=== PATIENT | male | born 1965 | race Caucasian/White ===

== ENCOUNTER 2019-05-26 12:59 | Emergency (ER) | payer OTHER, SELFPAY ==
[2019-05-26 13:10] VITALS: BP 137/90; PULSE 73; RESP 16; TEMP 36.2; O2SAT 97; BMI 34.4
[2019-05-26 13:44] LABS: Add Manual Diff / Slide Review NO; Basophils Absolute Auto 100 /uL (0-100); Eosinophils Absolute Auto 100 /uL (0-450); Hematocrit 44.5 % (41-53); Hemoglobin 15.5 g/dL (13.5-17.5); Lymphocytes Absolute Auto 1900 /uL (1100-4500); Lymphocytes Percent Auto 30.8 % (25-40); Mean Corpuscular HGB Conc 34.9 % (30-36); Mean Corpuscular Hemoglobin 31.1 PG (26-34); Mean Corpuscular Volume 89.3 fL (80-100); Monocytes Absolute Auto 500 /uL (0-900); Monocytes Percent Auto 8.2 % (3-14); Neutrophils Absolute Auto 3700 /uL (1500-7000); Platelet Count 175 X10^3/uL (150-400); Red Blood Cell Count 4.98 X10^6/uL (4.5-5.9); Red Cell Distribution Width 13.1 % (11.6-14.8); White Blood Cell Count 6.3 X10^3/uL (4.5-11.0)
[2019-05-26 13:53] LABS: PTT Partial Thromboplastin Tim 32 SECONDS (26.4-36.2)
[2019-05-26 13:54] LABS: Alanine Aminotransferase 43 IU/L (21-72); Albumin 4.4 g/dL (3.5-5.0); Albumin Globulin Ratio 1.4 (1.0-2.8); Alkaline Phosphatase 78 U/L (38-126); Aspartate Aminotransferase 38 IU/L (17-59); Bilirubin Total 0.9 mg/dL (0.2-1.3); Blood Urea Nitrogen 19 mg/dL (9-20); Calcium 9.4 mg/dL (8.4-10.2); Carbon Dioxide 28 mmol/L (22-32); Chloride 101 mmol/L (98-107); Estimated Glomerular Filt Rate > 60.0 mL/min (>60); Globulin 3.1 g/dL (1.7-4.1); Glucose 105 mg/dL (70-100); HEMOLYSIS 29 (0-50); Lipase 78 U/L (23-300); Potassium 4.4 mmol/L (3.4-5.1); Sodium 137 mmol/L (137-145); Total Protein 7.5 g/dL (6.3-8.2)
[2019-05-26] MEDS: SODIUM CHLORIDE 0.9% 1,000 ML 150 ML IV (13:55)
--- NOTE | 2019-05-26 14:09 | DI.CT.S_ITS ---
PROCEDURE: CT ABDOMEN PELVIS W CON INDICATIONS: RLQ pain for 3 days TECHNIQUE: After the administration of intravenous contrast, 5 mm thick sections acquired from the diaphragm to the symphysis. 5 mm coronal and sagittal reformats were acquired. For radiation dose reduction, the following was used: automated exposure control, adjustment of mA and/or kV according to patient size. COMPARISON: None. FINDINGS: Image quality: Excellent. ABDOMEN: Lung bases: Lung bases are clear. Heart size is normal. Solid organs: Liver is normal in size and enhancement. Gallbladder is within normal limits. Biliary system is non dilated. Pancreas enhances normally. Spleen is normal in size and enhancement. No adrenal nodules. Kidneys demonstrate normal size and enhancement, without hydronephrosis. Peritoneum and bowel: Bowel loops demonstrate normal wall thickness and caliber. No free fluid or air. The appendix is normal. Nodes and vessels: No retroperitoneal or mesenteric adenopathy by size criteria. Aorta and inferior vena cava are normal in size. Scattered atherosclerotic calcifications involving the abdominal and pelvic vasculature. Miscellaneous: A small fat containing umbilical hernia. PELVIS: Genitourinary: Bladder wall thickness is normal. Urinary bladder is markedly distended. Miscellaneous: No inguinal hernias or adenopathy. Bones: No suspicious bony lesions. No vertebral body compression fractures. Spine degenerative disc disease and facet arthropathy. IMPRESSION: 1. No acute disease process. 2. No evidence of appendicitis. 3. No free fluid or free air. 4. No dilated loops of bowel. 5. Fat containing umbilical hernia. 6. Marked distention of the urinary bladder without bladder wall thickening. Dictated by: Lilly Villarreal MD, PhD on 05/26/2019 at 15:17 Approved by: Lilly Villarreal MD, PhD on 05/26/2019 at 15:23
[2019-05-26 14:33] VITALS: BP 131/88
--- NOTE | 2019-05-26 15:04 | ED_ITS ---
HPI - Abdominal Pain <MARGY CesarP - Last Filed: 05/26/19 22:22> General Chief Complaint: Abdominal Pain Stated Complaint: Right Side Abd Pain, 2 Days Time Seen by Provider: 05/26/19 13:32 Source: patient Mode of arrival: Ambulatory Limitations: no limitations History of Present Illness HPI narrative: This is a 53-year-old gentleman, nonsmoker, who presents to ED with right lower quadrant pain for 3 days. Patient reports that pain got worse during last night. Patient denies urinary symptoms such as dysuria, urgency, or frequency or hematuria. Patient denies history of kidney stones. Patient reports pain is like chapping and increases with movement he has been limping du ring ambulation or at work. Patient denies fever, chills, changes in appetite nausea or vomiting. Patient reports loose stool without blood this morning which is not abnormal after spaghetti for dinner. Patient reports just not feel right with this discomfort and here for evaluation. Related Data Home Medications Medication Instructions Recorded Confirmed clonidine HCl 0.2 mg PO BEDTIME 05/26/19 05/26/19 methylphenidate HCl 20 mg PO BID 05/26/19 05/26/19 Allergies Allergy/AdvReac Type Severity Reaction Status Date / Time No Known Drug Allergies Allergy Verified 05/26/19 13:10 Review of Systems <Jose Ramon FloresTristaSPIKE Hahn - Last Filed: 05/26/19 22:22> Review of Systems Narrative: General: Denies fever, chills, fatigue, malaise, sweats. HEENT: Denies sinus pain, ear pain, sore throat, difficulty swallowing, dizziness. Respiratory: Denies dyspnea, cough, wheezing, hemoptysis, sputum. Cardiovascular: Denies chest pain, palpitations, orthopnea, edema. Gastrointestinal: See HPI : Denies dysuria, frequency, incontinence, hematuria, urinary retention. Musculoskeletal: Denies weakness, joint pain or bony pain. Skin: Denies rash, skin lesions, or other. Neurologic: Denies weakness, headache, numbness, change in speech, confusion, seizures, incoordination. Psychiatric: No concerning psychosocial issues. 12-point review of systems is negative except for those stated above. Patient History <SPIKE Cesar - Last Filed: 05/26/19 22:22> Social History Smoking Status: Never smoker alcohol intake frequency: 0-2 drinks per day Substance Use Type: marijuana Exam <SPIKE Cesar - Last Filed: 05/26/19 22:22> Narrative Exam Narrative: GEN: Alert, oriented x 3, well appearing and nourished, and in no acute distress. Head: Normal cephalic, atraumatic. No scalp or temporal tenderness, palpable mass or rash. EYES: Pupils are equal, round, and reactive to light and accommodation. E xtraocular muscles are intact bilaterally. There is no subconjunctival hemorrhage, exudate and sclera non-icteric. ENT: Bilateral auditory canals and tympanic membranes clear. Hearing grossly intact. Nose without bleeding, purulent discharge or deviation. Facial sinuses nontender to palpate. Mucous membrane moist, no mucosal lesion. Throat without erythema, tonsillar hypertrophy or exudate. Uvula in midline, airway patent. Neck: Trachea in midline. No JVD, non-tender without lymphadenopathy. No masses or thyroid megaly. Supple, non-tender and no meningeal signs. CARDIAC: Normal regular rate and rhythm without murmurs, gallops, or rubs. No chest wall tenderness. No peripheral edema, cyanosis or pallor. Capillary refill is less than 2 seconds. RESPIRATORY: Lungs are clear to auscultate bilaterally. No cough, wheezes, rales, or rhonchi. No stridor, respiratory distress, increase work of breathing, or accessary muscle used. ABD: Right lower quadrant pain with palpation with rebound tenderness. Abdomen soft and non-distendedn no guarding. Bowel sounds are normal in all 4 quadrants. There is no palpable masses or organomegaly. EXT: Full painless ROM of all extremities with no loss of sensation, strength, effusion or edema. SKIN: Warm, dry, normal color for patient. No erythema, lesions or rash over visible areas. BACK: Nontender without deformity or crepitance. No flank tenderness. NEUROLOGICAL: Alert and oriented to place, time and person. Sensation and motor function intact bilaterally. No facial droops, dysphasia. PSYCHIATRIC: Good judgement and reason, without hallucinations, abnormal affect or abnormal behaviors during the examination. Initial Vital Signs Initial Vital Signs: Vital Signs Temperature 97.1 F L 05/26/19 13:10 Pulse Rate 73 05/26/19 13:10 Respiratory Rate 16 05/26/19 13:10 Blood Pressure 137/90 05/26/19 13:10 Pulse Oximetry 97 05/26/19 13:10 <Renaldo Camacho DO - Last Filed: 05/27/19 07:06> Initial Vital Signs Initial Vital Signs: Vital Signs Temperature 97.1 F L 05/26/19 13:10 Pulse Rate 73 05/26/19 13:10 Respiratory Rate 16 05/26/19 13:10 Blood Pressure 137/90 05/26/19 13:10 Pulse Oximetry 97 05/26/19 13:10 Scores <SPIKE Cesar - Last Filed: 05/26/19 22:22> GCS Ben coma scale eye opening: Spontaneous Ben coma scale verbal response: Orientated Ben coma scale motor response: Obey commands [place] coma scale total score: 15 Course <SPIKE Cesar - Last Filed: 05/26/19 22:22> Orders Ordered: Discontinued Medications Sodium Chloride (Normal Saline 0.9%) 500 mls @ 1,000 mls/hr IV BOLUS ONE Stop: 05/26/19 14:15 Last Admin: 05/26/19 13:54 Dose: Not Given Documented by: SANIA Sodium Chloride (Normal Saline 0.9%) 1,000 mls @ 150 mls/hr IV CONT HAILEE Last Infusion: 05/26/19 16:00 Dose: 0 mls/hr Documented by: Infusion: 05/26/19 15:35 Dose: 1,000 mls/hr Documented by: Admin: 05/26/19 13:55 Dose: 150 mls/hr Documented by: SANIA Ketorolac Tromethamine (Toradol) 30 mg IV NOW ONE Stop: 05/26/19 13:47 Last Admin: 05/26/19 16:15 Dose: Not Given Documented by: SANIA Vital Signs Vital signs: Vital Signs - 8 hr 05/26/19 14:33 05/26/19 16:20 Pulse Rate 63 Respiratory Rate 18 Blood Pressure 129/82 Blood Pressure [Left Arm] 131/88 Pulse Oximetry 99 <DO Tirsta Serna Last Filed: 05/27/19 07:06> Orders Ordered: Discontinued Medications Sodium Chloride (Normal Saline 0.9%) 500 mls @ 1,000 mls/hr IV BOLUS ONE Stop: 05/26/19 14:15 Last Admin: 05/26/19 13:54 Dose: Not Given Documented by: SANIA Sodium Chloride (Normal Saline 0.9%) 1,000 mls @ 150 mls/hr IV CONT HAILEE Last Infusion: 05/26/19 16:00 Dose: 0 mls/hr Documented by: Infusion: 05/26/19 15:35 Dose: 1,000 mls/hr Documented by: Admin: 05/26/19 13:55 Dose: 150 mls/hr Documented by: SANIA Ketorolac Tromethamine (Toradol) 30 mg IV NOW ONE Stop: 05/26/19 13:47 Last Admin: 05/26/19 16:15 Dose: Not Given Documented by: SANIA Vital Signs Vital signs: Vital Signs - 8 hr 05/26/19 14:33 05/26/19 16:20 Pulse Rate 63 Respiratory Rate 18 Blood Pressure 129/82 Blood Pressure [Left Arm] 131/88 Pulse Oximetry 99 MDM - Abdominal Pain <SPIKE Cesar - Last Filed: 05/26/19 22:22> Differential Diagnosis Differential diagnosis: Likely abdominal pain, acute appendicitis, calculus of kidney and other (Abdominal muscle strain) Medical Records Attestation: I reviewed the patient's medical records. Lab Data Attestation: I reviewed the patient's lab results. Result diagrams: 05/26/19 13:41 05/26/19 13:41 Labs: Lab Results 05/26/19 05/26/19 05/26/19 Range/Units 13:41 13:41 13:41 WBC 6.3 (4.5-11.0) X10^3/uL RBC 4.98 (4.5-5.9) X10^6/uL Hgb 15.5 (13.5-17.5) g/dL Hct 44.5 (41-53) % MCV 89.3 (80-100) fL MCH 31.1 (26-34) PG MCHC 34.9 (30-36) % RDW 13.1 (11.6-14.8) % Plt Count 175 (150-400) X10^3/uL Neut % (Auto) 58.0 (50-75) % Lymph % (Auto) 30.8 (25-40) % [place] % (Auto) 8.2 (3-14) % Eos % (Auto) 2.0 (2-4) % Baso % (Auto) 1.0 (0-2) % Neut # (Auto) 3700 (3790-9692) /uL Lymph # (Auto) 1900 (7085-2967) /uL [place] # (Auto) 500 (0-900) /uL Eos # (Auto) 100 (0-450) /uL Baso # (Auto) 100 (0-100) /uL PT 11.0 (10.1-12.7) SECONDS INR 1.0 (0.9-1.3) APTT 32 (26.4-36.2) SECONDS Sodium 137 (137-145) mmol/L Potassium 4.4 (3.4-5.1) mmol/L Chloride 101 (98-107) mmol/L Carbon Dioxide 28 (22-32) mmol/L BUN 19 (9-20) mg/dL Creatinine 1.00 (0.66-1.25) mg/dL Estimated GFR > 60.0 (>60) mL/min BUN/Creatinine Ratio 19.0 (6-22) Glucose 105 H (70-100) mg/dL Calcium 9.4 (8.4-10.2) mg/dL Total Bilirubin 0.9 (0.2-1.3) mg/dL AST 38 (17-59) IU/L ALT 43 (21-72) IU/L Alkaline Phosphatase 78 (38-126) U/L Total Protein 7.5 (6.3-8.2) g/dL Albumin 4.4 (3.5-5.0) g/dL Globulin 3.1 (1.7-4.1) g/dL Albumin/Globulin Ratio 1.4 (1.0-2.8) Lipase 78 (23-300) U/L Point of care testing: Urine Dip Bedside Urine Glucose Negative Bedside Urine Bilirubin - Negative Bedside Urine Ketone - Negative Urine Specific [place] 1.010 Bedside Urine Occult Blood - Negative Bedside Urine pH 6.0 Bedside Urine Protein - Negative Bedside Urine Urobilinogen - Negative Bedside Urine Nitrite - Negative Bedside Urine Leukocytes - Negative Esterase Imaging Data CT scan - abdomen: Radiologist's impression: [address] [address] [address] Scan Report Signed Patient: Ruddy Garzon WMR#: [id number] : 1965Acct:[id number] Age/Sex: 53 / MDate of Service: 05/26/19 Loc: ED Accession Number: [id number] Procedure: CT abdomen pelvis w con Ordering Provider: Jose Ramon Mccoy PROCEDURE: CT ABDOMEN PELVIS W CON INDICATIONS: RLQ pain for 3 days TECHNIQUE: After the administration of intravenous contrast, 5 mm thick sections acquired from the diaphragm to the symphysis. 5 mm coronal and sagittal reformats were acquired. For radiation dose reduction, the following was used: automated exposure control, adjustment of mA and/or kV according to patient size. COMPARISON: None. FINDINGS: Image quality: Excellent. ABDOMEN: Lung bases: Lung bases are clear. Heart size is normal. Solid organs: Liver is normal in size and enhancement. Gallbladder is within normal limits. Biliary system is non dilated. Pancreas enhances normally. Spleen is normal in size and enhancement. No adrenal nodules. Kidneys demonstrate normal size and enhancement, without hydronephrosis. Peritoneum and bowel: Bowel loops demonstrate normal wall thickness and caliber. No free fluid or air. The appendix is normal. Nodes and vessels: No retroperitoneal or mesenteric adenopathy by size criteria. Aorta and inferior vena cava are normal in size. Scattered atherosclerotic ca lcifications involving the abdominal and pelvic vasculature. Miscellaneous: A small fat containing umbilical hernia. PELVIS: Genitourinary: Bladder wall thickness is normal. Urinary bladder is markedly distended. Miscellaneous: No inguinal hernias or adenopathy. Bones: No suspicious bony lesions. No vertebral body compression fractures. Spine degenerative disc disease and facet arthropathy. IMPRESSION: 1. No acute disease process. 2. No evidence of appendicitis. 3. No free fluid or free air. 4. No dilated loops of bowel. 5. Fat containing umbilical hernia. 6. Marked distention of the urinary bladder without bladder wall thickening. Dictated by: Lilly Villarreal MD, PhD on 05/26/2019 at 15:17 Approved by: Lilly Villarreal MD, PhD on 05/26/2019 at 15:23 [facility] Narrative Medical decision making narrative: This is a pleasant 53-year-old gentleman presents to ED with right lower quadrant discomfort for 3 days. Patient denies constitutional symptoms or appetite change. Patient reports pain worsens with movements. Abdominal physical exam exhibited right lower quadrant pain with palpation, rebound tenderness with soft and nondistended abdomen. Patient has no history of previous abdominal surgeries. Patient's blood test for unremarkable including CBC and chemistry. CT abdomen pelvis showed no acute findings including appendicitis, no signs of bladder infection, no hydronephrosis. There is a small fat containing umbilical hernia. Urine test showed no indication of infection or hematuria. Patient declined IV medication of Toradol twice for pain. Findings were discussed with the patient. Patient advised to take Tylenol and or Motrin as needed for discomfort as this may is due to abdominal muscle strain and activity as tolerated. Patient verbalized understanding and agrees with treatment plan. Patient was afebrile with normal tensive and normal heart rate while in ED. <Renaldo Camacho DO - Last Filed: 05/27/19 07:06> Lab Data Labs: Lab Results 05/26/19 05/26/19 05/26/19 Range/Units 13:41 13:41 13:41 WBC 6.3 (4.5-11.0) X10^3/uL RBC 4.98 (4.5-5.9) X10^6/uL Hgb 15.5 (13.5-17.5) g/dL Hct 44.5 (41-53) % MCV 89.3 (80-100) fL MCH 31.1 (26-34) PG MCHC 34.9 (30-36) % RDW 13.1 (11.6-14.8) % Plt Count 175 (150-400) X10^3/uL Neut % (Auto) 58.0 (50-75) % Lymph % (Auto) 30.8 (25-40) % [place] % (Auto) 8.2 (3-14) % Eos % (Auto) 2.0 (2-4) % Baso % (Auto) 1.0 (0-2) % Neut # (Auto) 3700 (9344-5511) /uL Lymph # (Auto) 1900 (5959-6143) /uL [place] # (Auto) 500 (0-900) /uL Eos # (Auto) 100 (0-450) /uL Baso # (Auto) 100 (0-100) /uL PT 11.0 (10.1-12.7) SECONDS INR 1.0 (0.9-1.3) APTT 32 (26.4-36.2) SECONDS Sodium 137 (137-145) mmol/L Potassium 4.4 (3.4-5.1) mmol/L Chloride 101 (98-107) mmol/L Carbon Dioxide 28 (22-32) mmol/L BUN 19 (9-20) mg/dL Creatinine 1.00 (0.66-1.25) mg/dL Estimated GFR > 60.0 (>60) mL/min BUN/Creatinine Ratio 19.0 (6-22) Glucose 105 H (70-100) mg/dL Calcium 9.4 (8.4-10.2) mg/dL Total Bilirubin 0.9 (0.2-1.3) mg/dL AST 38 (17-59) IU/L ALT 43 (21-72) IU/L Alkaline Phosphatase 78 (38-126) U/L Total Protein 7.5 (6.3-8.2) g/dL Albumin 4.4 (3.5-5.0) g/dL Globulin 3.1 (1.7-4.1) g/dL Albumin/Globulin Ratio 1.4 (1.0-2.8) Lipase 78 (23-300) U/L Point of care testing: Urine Dip Bedside Urine Glucose Negative Bedside Urine Bilirubin - Negative Bedside Urine Ketone - Negative Urine Specific [place] 1.010 Bedside Urine Occult Blood - Negative Bedside Urine pH 6.0 Bedside Urine Protein - Negative Bedside Urine Urobilinogen - Negative Bedside Urine Nitrite - Negative Bedside Urine Leukocytes - Negative Esterase Discharge Plan Departure Patient Disposition: Home Clinical Impression: Right sided abdominal pain Discharge Date/Time: 05/26/19 16:20 Instructions: DI for Abdominal Pain-Adult Activity Restrictions/Additional Instructions: You have been diagnosed with [right-sided abdominal pain likely due to abdominal muscle strain. Lab tests were unremarkable today including urine test. CT test shows small fat containing umbilical hernia but no evidence of appendicitis]. What to do: *Take your medications as directed. Please take [id number] Tylenol and or Motrin as needed for discomfort. You can take upto 4000 mg Tylenol in 24 hr period and Motrin 600-800 mg 3 times a day with food. *Follow up with your primary care provider in 2-3 days, call for an appointment. Let them know you were seen in the ED and that we asked you to be seen in follow up. *Return to ED if you have any new, worsening, or concerning symptoms, such as [worsening pain, fever, decreased appetite, unable to void, unable to tolerate fluids, chest pain, breathing difficulty or any acute concerns]. Prescriptions: No Action methylphenidate HCl 20 mg Tablet 20 mg PO BID RF: 0 clonidine HCl 0.2 mg Tablet 0.2 mg PO BEDTIME RF: 0 Referrals: Diego Richardson MD [Primary Care Provider] - <Renaldo Camacho DO - Last Filed: 05/27/19 07:06> Sign Out Provider Sign Out Attestation: Dr Camacho Co-Sign Statement: I was available for consultation during this patient's emergency department visit. This chart is si gned by myself for administrative purposes only. I did not have direct contact with this patient during this visit. They were seen independently by the APC.
--- NOTE | 2019-05-26 15:35 | PC.NURSE ---
Sped up IV infusion of NaCl to 1000 mL/hr, per provider.
[2019-05-26 16:20] VITALS: BP 129/82; PULSE 63; RESP 18; O2SAT 99
== END 2019-05-26 16:20 | disposition home or self-care (01) ==
PROVIDERS: Emergency Medicine; Emergency Provider Nurse Practitioner Family; Family Provider Family Medicine; PCP Family Medicine
DX: R10.31 Right lower quadrant pain (principal); R10.9 Unspecified abdominal pain; K42.9 Umbilical hernia without obstruction or gangrene
CPT/HCPCS: 36415; 74177; 80053; 81003; 83690; 85025; 85610; 85730; 96360; 96361; 99283; 99284; Q9967

== ENCOUNTER → 2021-07-18 14:35 | Outpatient (CLI) | payer OTHER, SELFPAY ==
--- NOTE | 2021-07-18 14:38 | DI.RAD.S_ITS ---
PROCEDURE: XR ANKLE RT MIN 3V INDICATIONS: LIMP TECHNIQUE: 3 views of the ankle were acquired. COMPARISON: None. FINDINGS: Bones: No fractures or dislocations. Ankle mortise is normally aligned. No suspicious bony lesions. Prominent retrocalcaneal bone spur. Soft tissues: No tibiotalar joint effusion. Achilles tendon appears normal. IMPRESSION: Calcaneal enthesopathy. Dictated by: Bakari Brooks [facility] Interpreted: Francisco Burden MD on 07/18/2021 at 15:13 Transcribed by: THONY on 07/18/2021 at 15:14 Approved by: Francisco Burden M.D. on 07/18/2021 at 15:39
== END ==
PROVIDERS: Family Provider Family Medicine; PCP Family Medicine; Referring Provider Family Medicine; Visit Provider Family Medicine
DX: M77.31 Calcaneal spur, right foot (principal); R26.89 Other abnormalities of gait and mobility
CPT/HCPCS: 73610

== ENCOUNTER → 2021-10-12 10:11 | Outpatient (CLI) | payer OTHER, SELFPAY ==
[2021-10-12 11:39] LABS: COVID19 -Nasal RAPID Negative (Negative)
== END ==
PROVIDERS: Family Provider Family Medicine; PCP Family Medicine; Visit Provider Nurse Practitioner Family
DX: Z20.822 Contact with and (suspected) exposure to COVID-19 (principal)
CPT/HCPCS: 87635; C9803

== ENCOUNTER 2021-10-14 13:28 | Day surgery (SDC) | payer OTHER, SELFPAY ==
--- NOTE | 2021-10-14 12:20 | PM.HP.1 ---
History of Present Illness History of Present Illness Date Patient Seen: 10/14/21 Chief complaint: SDC Narrative: 55 year old male comes in today for consideration of a screening colonoscopy. There have been no lower GI symptoms suggesting disease such as change in bowel habits, bleeding, abdominal pain or anemia. There's been no family history of colon cancer or colon polyps. Overall health issues have been stable, including no major cardiac events for at least 6 weeks. PCP: Dr. Richardson Past medical history: Achilles tendinitis Insomnia Obesity Hyperlipidemia ADD Past surgical history: Vasectomy Family history: Noncontributory Social history: , contractor, 2 kids. Patient History Medical History (Updated 10/13/21 @ 16:31 by Vicki Tellez RN) ADHD Carpal tunnel syndrome of left wrist Hyperchloremia Surgical History (Updated 10/13/21 @ 16:31 by Vicki Tellez RN) H/O vasectomy Family & Social History Tobacco & Substance use: Smoking Status Never smoker alcohol intake frequency 0-2 drinks per day Substance Use Type marijuana Meds Home Medications and Allergies Home Medications Medication Instructions Recorded Confirmed Type clonidine HCl 0.2 mg tablet 0.2 mg PO BEDTIME 05/26/19 10/14/21 History methylphenidate HCl 20 mg tablet 20 mg PO BID 05/26/19 10/14/21 History Allergies Allergy/AdvReac Type Severity Reaction Status Date / Time No Known Drug Allergies Allergy Verified 10/14/21 13:45 Review of Systems Review of Systems Narrative: All remaining ROS were reviewed and negative except as addressed. Exam Narrative Exam Narrative: GENERAL: Alert and oriented, appearing stated age and in no acute distress. HEENT: Head normocephalic/atraumatic. Extraocular movements intact. LUNGS: Clear to ausculation bilaterally, no wheezes, rhonchi or rales. CV: Normal S1 and S2 with regular rate and rhythm, no audible murmurs, rubs or gallops. ABDOMEN: Soft, non-tender, non-distended, no organomegaly. Positive bowel sounds. EXTREMITIES: No clubbing, cyanosis, or edema. NEURO: Cranial nerves II through XII grossly intact, no focal deficits. PSYCH: Alert and oriented x 3. SKIN: No concerning lesions. Assessment & Plan Assessment & Plan narrative: 1. Screening for colon cancer Plan for colonoscopy. The nature and character of the procedure as well as anticipated results were discussed. The possibility of not completing the procedure was also discussed. Possible complications including aspiration pneumonia, bleeding, perforation and reaction to medications either for sedation or preparation and missed lesions were discussed. Questions were answered and proceeding to the colonoscopy was elected. Informed consent signed. I sincerely appreciate the referral allowing me to participate in this patient's care. Please contact me with any questions or concerns.
--- NOTE | 2021-10-14 12:22 | PM.OP.COLON ---
Operative Date/Time/Diagnoses Date of procedure: 10/14/21 Procedure Notes SCOAP/Timeout: 2:27 p.m. Procedure in detail: ENDOSCOPIST: Sharla Potts MD Sedation RN: Liza Bear RN Sedation start time: 2:28 p.m. Sedation end time: 2:53 p.m. PROCEDURE: Colonoscopy INDICATIONS: 1. Screening for colon cancer MEDICATION: Levsin 0.125 mg sublingual, incremental doses of Versed and fentanyl until appropriate level sedation achieved. ASA CLASS: 2 CECAL WITHDRAWAL TIME: 6 minutes COMPLICATIONS: None. EXTENT OF PROCEDURE: Cecum. QUALITY OF PREP: Good with portions of liquid stool. PROCEDURE: Prior to insertion of the colonoscope, a digital rectal examination was accomplished with circumferential palpation of the distal rectal mucosa without significant findings being noted. The high-definition colonoscope was passed into the rectum in the usual fashion and advanced over to the cecum without difficulty. The ileocecal valve, appendiceal stoma, and medial wall all could be inspected and no abnormalities were seen. ASCENDING COLON: As the colonoscope was withdrawn, care was taken to expose and inspect the haustral folds and no abnormalities were seen. HEPATIC FLEXURE: Normal, no polyps, diverticula or other abnormalities. TRANSVERSE COLON: Normal, no polyps, diverticula or other abnormalities. DESCENDING COLON: Normal, no polyps, diverticula or other abnormalities. SIGMOID COLON: Normal, no polyps, diverticula or other abnormalities. RECTUM: Normal. J maneuver was produced. There was no significant perianal disease. The J maneuver was broken. The remainder of the rectum was inspected and there was no external hemorrhoid disease. The scope was withdrawn. IMPRESSION: 1. Normal colonoscopy PLAN: 1. Repeat colonoscopy in 10 years. The possibility of a missed lesion including a malignancy has been discussed with the patient previously. Potential alarm symptoms have been discussed and should be reported immediately.
[2021-10-14 13:39] VITALS: BMI 34.6
[2021-10-14 13:47] VITALS: BP 137/90; PULSE 75; RESP 20; TEMP 36.2; O2SAT 98
[2021-10-14] MEDS: HYOSCYAMINE 0.125 MG TABLET PO (13:52)
[2021-10-14] MEDS: LACTATED RINGERS 1,000 ML 200 ML IV (13:52)
[2021-10-14] MEDS: MIDAZOLAM 5 MG/5 ML VIAL IV (14:33)
[2021-10-14] MEDS: fentaNYL 250 MCG/5 ML INJ IV (14:33)
[2021-10-14 14:58] VITALS: BP 135/98; PULSE 68; RESP 18; TEMP 36.1; O2SAT 92
--- NOTE | 2021-10-14 15:02 | SUR.PHASEI ---
Patient to recovery s/o colonoscopy; per endo nurse, patient had briief episode of bradycardia in the 30s and low oxygen saturation during procedure. VSS on arrival to recovery; abdomen obese but soft; no nausea; no pain; no SOB; lungs CTA in all gabriel on auscultation.
[2021-10-14 15:03] VITALS: BP 127/91; PULSE 69; RESP 18; O2SAT 96
[2021-10-14 15:08] VITALS: BP 138/91; PULSE 66; RESP 19; O2SAT 93
== END 2021-10-14 15:22 | disposition home or self-care (01) ==
PROVIDERS: Family Provider Family Medicine; PCP Family Medicine; Referring Provider Student in an Organized Health Care Education/Training Program; Visit Provider Student in an Organized Health Care Education/Training Program
PROC: 0DJD8ZZ Inspection of Lower Intestinal Tract, Via Natural or Artificial Opening Endoscopic (ICD-10-PCS; CPT 45378; principal; 2021-10-14 14:30)
DX: Z12.11 Encounter for screening for malignant neoplasm of colon (principal)
CPT/HCPCS: 45378; J2250; J3010

== ENCOUNTER → 2022-02-04 20:58 | Outpatient (CLI) | payer OTHER, SELFPAY ==
--- NOTE | 2022-02-04 | DI.RAD.S_ITS ---
PROCEDURE: XR HAND RT MIN 3V INDICATIONS: PAIN IN RIGHT HAND TECHNIQUE: 3 views of the hand(s) acquired. COMPARISON: None. FINDINGS: Bones: No fractures or dislocations. Carpal bones are normally aligned. No suspicious bony lesions. Soft tissues: No suspicious soft tissue calcifications. IMPRESSION: Minimal degenerative joint space narrowing at the distal interphalangeal joints, no sign of erosive arthritis or trauma. Dictated by: Morgan Long M.D. on 02/04/2022 at 21:27 Approved by: Morgan Long M.D. on 02/04/2022 at 21:28
== END ==
PROVIDERS: Family Provider Family Medicine; PCP Family Medicine; Referring Provider Family Medicine; Visit Provider Family Medicine
DX: M79.644 Pain in right finger(s) (principal)
CPT/HCPCS: 73130